=== PATIENT | female | born 1985 | race Caucasian/White ===

== ENCOUNTER → 2023-01-09 13:45 | Outpatient (CLI) | payer OTHER, SELFPAY | PROVIDERS: Visit Provider Physician Assistant | DX: B37.9 Candidiasis, unspecified (principal); N89.8 Other specified noninflammatory disorders of vagina | CPT/HCPCS: 87086; 87210 ==

== ENCOUNTER 2023-01-10 11:11 | Emergency (ER) | payer OTHER, SELFPAY ==
[2023-01-10 11:32] VITALS: BP 130/95; PULSE 100; RESP 18; TEMP 36.6; O2SAT 100; BMI 23.9
--- NOTE | 2023-01-10 12:10 | DI.CT.S_ITS ---
PROCEDURE: CT ABDOMEN PELVIS W CON INDICATIONS: severe rectal pain, ulcerative colitis TECHNIQUE: After the administration of intravenous contrast, axial sections acquired from the lung bases to the pubic symphysis. Coronal and sagittal reformats were performed. For radiation dose reduction, the following was used: automated exposure control, adjustment of mA and/or kV according to patient size. COMPARISON: None. FINDINGS: Image quality: Excellent. Lung bases: Unremarkable. Heart: No significant findings. ABDOMEN: Liver: Scattered subcentimeter hypoattenuating lesions, too small to characterize by CT but probably small cysts. Gallbladder: Unremarkable. Biliary ducts: Unremarkable. Pancreas: Unremarkable. Spleen: Unremarkable. Adrenal Glands: Unremarkable. Kidneys and Ureters: Punctate, nonobstructing right-sided stones. No hydronephrosis. Stomach and Bowel: Slight asymmetric wall enhancement of the right lower rectum at the anorectal junction (series 2, image 81). Peritoneum: No abnormal intraperitoneal fluid. No free air. Ventral Wall: No hernias. Abdominal Nodes: No retroperitoneal or mesenteric adenopathy by size criteria. Vessels: Aorta and inferior vena cava are normal in size. PELVIS: Pelvic Organs: Unremarkable. Bladder: Unremarkable. Pelvic Nodes: No enlarged lymph nodes. Miscellaneous: No hernias are seen. Bones: Unremarkable. IMPRESSION: Slight asymmetric wall enhancement of the right lower rectal wall at the anorectal junction. Given symptoms, findings probably represent proctitis. Small burden of punctate, nonobstructing right-sided stones. Dictated by: Reid Arreola M.D. on 01/10/2023 at 13:31 Approved by: Reid Arreola M.D. on 01/10/2023 at 13:33
--- NOTE | 2023-01-10 12:29 | ED_ITS ---
HPI - Skin/Abscess/Foreign Bdy <Sadie Bermudez PA-C - Last Filed: 01/10/23 19:41> General Chief complaint: Skin/Abscess/Foreign Body Stated complaint: cyst/drainage by anus and painful Time Seen by Provider: 01/10/23 11:15 History of Present Illness HPI narrative: This is a 37-year-old woman with a history of ulcerative colitis, hemorrhoids, multiple cysts who presents with concern for severe rectal/anus pain and mass. Patient states that an area right near her anus has been extremely painful and tender for the past 3 days, she states it was painful prior to this for about the past week but became severe on Sunday 3 days ago. She states the pain spec ifically comes on with high-intensity when she has a bowel movement but then persists for the remainder of the day and is almost as painful for the remainder of the day. She states it has made it difficult to move walk or perform her work. She states that the pain does resolve usually by nighttime and by morning when she wakes up it is not present. Her last bowel movement was this morning at 9:15 a.m. and she is had severe pain since that time. She is concerned that she may have an abscess versus cyst. She denies abdominal pain except in the baseline mild abdominal discomfort associated with her UC. She states she has not had fevers and has been eating and drinking normally. Her stools have not had mucus or blood in them. Her last stools over the last few days have been brownish in color and soft. Related Data Home Medications Medication Instructions Recorded Confirmed mesalamine 1.2 gram tablet,delayed 2.4 g PO DAILY 01/09/23 01/09/23 release Previous Rx's Medication Instructions Recorded clotrimazole 1 % topical cream 1 applic topical BID 2 weeks #15 01/09/23 grams fluconazole 150 mg tablet 150 mg PO DAILY #1 tab 01/09/23 sulfamethoxazole 800 1 tab PO Q12H #14 tabs 01/09/23 mg-trimethoprim 160 mg tablet (Bactrim DS) docusate sodium 100 mg tablet 100 mg PO DAILY 10 days #10 tabs 01/10/23 meloxicam 7.5 mg tablet 7.5 mg PO DAILY 10 days #10 tabs 01/10/23 Allergies Allergy/AdvReac Type Severity Reaction Status Date / Time latex Allergy Intermediate rashes Verified 01/10/23 11:34 Review of Systems <Sadiedeepika Bermudez PA-C - Last Filed: 01/10/23 19:41> Review of Systems Narrative: See HPI Patient History <Sadie KIKA Bermudez - Last Filed: 01/10/23 19:41> tobacco type: vaping alcohol intake frequency: a few times a month Substance Use Type: does not use Exam <Sadiedeepika Bermudez PA-C - Last Filed: 01/10/23 19:41> Narrative Exam Narrative: POWER Huerta present as corporate associate for rectal exam GENERAL: [37] year old patient appears stated age. Well-developed patient, in moderate distress, pt is very uncomfortable appearing, lying in position of comfort on Right side. HEAD: Atraumatic. Normocephalic. EYES: Pupils equal round and reactive. Extraocular motions intact. No scleral icterus. No injection or drainage. ENT: Nose without bleeding, purulent drainage. Airway patent. NECK: Trachea midline. Non tender CARDIOVASCULAR: Regular rate and rhythm without murmurs, gallops, or rubs. RESPIRATORY: Clear to auscultation. Breath sounds equal bilaterally. No wheezes, rales, or rhonchi. GASTROINTESTINAL: Abdomen soft, non-tender, nondistended. RECTAL: ( exam is not performed) visual inspection of the area of the anus shows multiple flesh-colored chronic hemorrhoids versus genital warts. There is a raised lesion that is also flesh-colored located between the 7 and 9 o'clock position just outside the anus. This is extremely tender to palpation, without fluctuance or drainage noted. Missed lesion is approximately 1-1.5 cm diameter, however there is tenderness surrounding the region with light palpation. Patient is exquisitely tender with palpation of this raised area. A limited rectal internal exam is performed to evaluate this area, and a small tender mass is noted internally between 7-9 o'clock consistent with the external lesion. Patient is exquisitely tender with this exam. EXTREMITIES: No edema or joint tenderness. BACK: Nontender without deformity or crepitance. No flank tenderness. NEURO: AOx3. SKIN: No rash or erythema of visible areas Initial Vital Signs Initial Vital Signs: Vital Signs Temperature 98 F 01/10/23 11:32 Pulse Rate 100 H 01/10/23 11:32 Respiratory Rate 18 01/10/23 11:32 Blood Pressure 130/95 H 01/10/23 11:32 Pulse Oximetry 100 01/10/23 11:32 Oxygen Delivery Method Room Air 01/10/23 11:32 <Karolina Jara, - Last Filed: 01/15/23 08:17> Initial Vital Signs Initial Vital Signs: Vital Signs Temperature 98 F 01/10/23 11:32 Pulse Rate 100 H 01/10/23 11:32 Respiratory Rate 18 01/10/23 11:32 Blood Pressure 130/95 H 01/10/23 11:32 Pulse Oximetry 100 01/10/23 11:32 Oxygen Delivery Method Room Air 01/10/23 11:32 Course <Sadei Bermudez PA-C - Last Filed: 01/10/23 19:41> Course Course Narrative: Did discuss this patient with Dr. Jara regarding plan for labs and imaging. Given patient's history of ulcerative colitis and inconclusive rectal/external exam CT scan is pursued for further evaluation of abscess versus cyst. To further evaluate for internal involvement. After return of imaging results discussed results with the patient, noting that there does not appear to be a drainable abscess but there is inflammation present consistent with proctitis, she shared her GI doctor's name and will attempt to contact them for consult regarding potential medication options. Patient also stated that she has been prescribed Humira but has not been able to get this prescription filled yet. 1524 sports marketing coordinator did call and talk to someone at [facility] who advised they would get their on-call GI provider at [facility] that works with Dr. Rosario (patient's GI provider) to call back, however this has not happened. sports marketing coordinator has called multiple times repeatedly to try to get a hold of someone. Will discuss patient with our general surgeon on-call here Dr. Trevino. 1610 Did discuss this patient with on-call surgeon Dr. Trevino, he does not have any specific recommendations other than checking up-to-date prefers that patient talked to her GI provider regarding medication options. States patient does not require surgical management at this time. Did discuss this patient again with clinic physician Dr. Gold feels it is reasonable to place her on a short course of steroids, Colace as stool softener and meloxicam for pain. Have her follow up closely with her GI provider. Based on labs today as well as patient's CT imaging we are not seeing evidence of need for admission. 1624 Orders Ordered: Discontinued Medications Acetaminophen (Acetaminophen 325 Mg Tablet) 650 mg PO NOW ONE Stop: 01/10/23 12:00 Last Admin: 01/10/23 13:05 Dose: 650 mg Documented By: JESSIE Ketorolac Tromethamine (Ketorolac 30 Mg/Ml Vial) 15 mg IV NOW ONE Stop: 01/10/23 15:51 Last Admin: 01/10/23 16:04 Dose: 15 mg Documented By: JESSIE Vital Signs Vital signs: Vital Signs - 8 hr 01/10/23 16:12 01/10/23 16:12 01/10/23 16:30 Pulse Rate Blood Pressure 107/60 108/73 Pulse Oximetry 96 01/10/23 16:30 Pulse Rate 80 Blood Pressure Pulse Oximetry 98 <Karolina Jara DO - Last Filed: 01/15/23 08:17> Orders Ordered: Discontinued Medications Acetaminophen (Acetaminophen 325 Mg Tablet) 650 mg PO NOW ONE Stop: 01/10/23 12:00 Last Admin: 01/10/23 13:05 Dose: 650 mg Documented By: JESSIE Ketorolac Tromethamine (Ketorolac 30 Mg/Ml Vial) 15 mg IV NOW ONE Stop: 01/10/23 15:51 Last Admin: 01/10/23 16:04 Dose: 15 mg Documented By: JESSIE Vital Signs Vital signs: Vital Signs - 8 hr 01/10/23 16:12 01/10/23 16:12 01/10/23 16:30 Pulse Rate Blood Pressure 107/60 108/73 Pulse Oximetry 96 01/10/23 16:30 Pulse Rate 80 Blood Pressure Pulse Oximetry 98 MDM - Skin/Abscess/Foreign Bdy <Sadie Bermudez PA-C - Last Filed: 01/10/23 19:41> Differential Diagnosis Differential diagnosis: Likely abscess of skin or subcutaneous tissue, cellulitis and other (Ulcerative colitis, proctitis, hemorrhoid) Medical Records Attestation: I reviewed the patient's medical records. Lab Data Attestation: I reviewed the patient's lab results. 01/10/23 12:51 01/10/23 12:51 Labs: Lab Results 01/10/23 01/10/23 01/10/23 Range/Units 12:51 12:51 12:51 WBC 11.3 H (4.5-11.0) X10^3/uL RBC 4.34 (4.0-5.2) X10^6/uL Hgb 11.6 L (12.0-16.0) g/dL Hct 35.6 L (36-46) % MCV 82.0 (80-100) fL MCH 26.7 (26-34) PG MCHC 32.5 (30-36) % RDW 14.5 (11.6-14.8) % Plt Count 348 (150-400) X10^3/uL Neut % (Auto) 80.8 H (50-75) % Lymph % (Auto) 11.2 L (25-40) % [place] % (Auto) 6.3 (3-14) % Eos % (Auto) 1.1 L (2-4) % Baso % (Auto) 0.6 (0-2) % Neut # (Auto) 9200 H (1342-7510) /uL Lymph # (Auto) 1300 (6867-5398) /uL [place] # (Auto) 700 (0-900) /uL Eos # (Auto) 100 (0-450) /uL Baso # (Auto) 100 (0-100) /uL ESR 36 H (0-20) MM/HR Sodium 140 (137-145) mmol/L Potassium 4.1 (3.4-5.1) mmol/L Chloride 104 (98-107) mmol/L Carbon Dioxide 31 (22-32) mmol/L BUN 8 (7-17) mg/dL Creatinine 0.67 (0.52-1.04) mg/dL Estimated GFR > 60 (>60) mL/min BUN/Creatinine Ratio 11.9 (6-22) Glucose 112 H (70-100) mg/dL Calcium 9.1 (8.4-10.2) mg/dL Total Bilirubin 0.4 (0.2-1.3) mg/dL AST 24 (14-36) IU/L ALT 14 (<35) IU/L Alkaline Phosphatase 97 (38-126) U/L C-Reactive Protein (<1.0) mg/dL Total Protein 8.2 (6.3-8.2) g/dL Albumin 4.2 (3.5-5.0) g/dL Globulin 4.0 (1.7-4.1) g/dL Albumin/Globulin Ratio 1.1 (1.0-2.8) HCG, Quant mIU/mL Serum , Qual (Negative) Urine RBC (0-5/HPF) Urine WBC (0-5/HPF) Ur Squamous Epith Cells (0-5/HPF) Urine Bacteria (None) Ur Culture Indicated? 01/10/23 01/10/23 01/10/23 Range/Units 12:51 12:51 12:51 WBC (4.5-11.0) X10^3/uL RBC (4.0-5.2) X10^6/uL Hgb (12.0-16.0) g/dL Hct (36-46) % MCV (80-100) fL MCH (26-34) PG MCHC (30-36) % RDW (11.6-14.8) % Plt Count (150-400) X10^3/uL Neut % (Auto) (50-75) % Lymph % (Auto) (25-40) % [place] % (Auto) (3-14) % Eos % (Auto) (2-4) % Baso % (Auto) (0-2) % Neut # (Auto) (2605-7941) /uL Lymph # (Auto) (3282-1863) /uL [place] # (Auto) (0-900) /uL Eos # (Auto) (0-450) /uL Baso # (Auto) (0-100) /uL ESR (0-20) MM/HR Sodium (137-145) mmol/L Potassium (3.4-5.1) mmol/L Chloride (98-107) mmol/L Carbon Dioxide (22-32) mmol/L BUN (7-17) mg/dL Creatinine (0.52-1.04) mg/dL Estimated GFR (>60) mL/min BUN/Creatinine Ratio (6-22) Glucose (70-100) mg/dL Calcium (8.4-10.2) mg/dL Total Bilirubin (0.2-1.3) mg/dL AST (14-36) IU/L ALT (<35) IU/L Alkaline Phosphatase (38-126) U/L C-Reactive Protein 1.5 H (<1.0) mg/dL Total Protein (6.3-8.2) g/dL Albumin (3.5-5.0) g/dL Globulin (1.7-4.1) g/dL Albumin/Globulin Ratio (1.0-2.8) HCG, Quant < 2.4 mIU/mL Serum , Qual Negative (Negative) Urine RBC (0-5/HPF) Urine WBC (0-5/HPF) Ur Squamous Epith Cells (0-5/HPF) Urine Bacteria (None) Ur Culture Indicated? 01/10/23 Range/Units 16:25 WBC (4.5-11.0) X10^3/uL RBC (4.0-5.2) X10^6/uL Hgb (12.0-16.0) g/dL Hct (36-46) % MCV (80-100) fL MCH (26-34) PG MCHC (30-36) % RDW (11.6-14.8) % Plt Count (150-400) X10^3/uL Neut % (Auto) (50-75) % Lymph % (Auto) (25-40) % [place] % (Auto) (3-14) % Eos % (Auto) (2-4) % Baso % (Auto) (0-2) % Neut # (Auto) (9074-9353) /uL Lymph # (Auto) (2979-1228) /uL [place] # (Auto) (0-900) /uL Eos # (Auto) (0-450) /uL Baso # (Auto) (0-100) /uL ESR (0-20) MM/HR Sodium (137-145) mmol/L Potassium (3.4-5.1) mmol/L Chloride (98-107) mmol/L Carbon Dioxide (22-32) mmol/L BUN (7-17) mg/dL Creatinine (0.52-1.04) mg/dL Estimated GFR (>60) mL/min BUN/Creatinine Ratio (6-22) Glucose (70-100) mg/dL Calcium (8.4-10.2) mg/dL Total Bilirubin (0.2-1.3) mg/dL AST (14-36) IU/L ALT (<35) IU/L Alkaline Phosphatase (38-126) U/L C-Reactive Protein (<1.0) mg/dL Total Protein (6.3-8.2) g/dL Albumin (3.5-5.0) g/dL Globulin (1.7-4.1) g/dL Albumin/Globulin Ratio (1.0-2.8) HCG, Quant mIU/mL Serum , Qual (Negative) Urine RBC 0-1/hpf (0-5/HPF) Urine WBC 5-10/hpf H (0-5/HPF) Ur Squamous Epith Cells 5-10 /hpf H (0-5/HPF) Urine Bacteria Many (>30) H (None) Ur Culture Indicated? Specimen cultured Point of Care Testing Test Results Negative Urine Dip Bedside Urine Glucose Negative Bedside Urine Bilirubin - Negative Bedside Urine Ketone - Negative Urine Specific [place] 1.005 Bedside Urine Occult Blood - Negative Bedside Urine pH 8.5 Bedside Urine Protein - Negative Bedside Urine Urobilinogen - Negative Bedside Urine Nitrite - Negative Bedside Urine Leukocytes +/- [address] scan - abdomen/pelvis: My Impression: Agree with Radiology interpretation Radiologist's Impression: [place] [address] CT Scan Report Signed Patient: Mimi Sanchez MR#: [id number] : 1985 Acct:[id number] Age/Sex: 37 / F Date of Service: 01/10/23 Loc: ED Accession Number: [id number] ?? Procedure: CT abdomen pelvis w con Ordering Provider: Sadie Bermudez P.A-C PROCEDURE:? CT ABDOMEN PELVIS W CON ? INDICATIONS:? severe rectal pain, ulcerative colitis ? TECHNIQUE:? After the administration of intravenous contrast, axial sections acquired from the lung bases to the pubic symphysis.? Coronal and sagittal reformats were performed.? For radiation dose reduction, the following was used:? automated exposure control, adjustment of mA and/or kV according to patient size.? ? COMPARISON:? None. ? FINDINGS:? Image quality:? Excellent.? ? Lung bases:? Unremarkable. Heart:? No significant findings. ? ABDOMEN: Liver: Scattered subcentimeter hypoattenuating lesions, too small to characterize by CT but probably small cysts. Gallbladder:? Unremarkable.? ? Biliary ducts:? Unremarkable.? ? Pancreas:? Unremarkable.? ? Spleen:? Unremarkable.? ? Adrenal Glands:? Unremarkable.? ? Kidneys and Ureters:? Punctate, nonobstructing right-sided stones.? No hydronephrosis. ? Stomach and Bowel:? Slight asymmetric wall enhancement of the right lower rectum at the anorectal junction (series 2, image 81). Peritoneum:? No abnormal intraperitoneal fluid.? No free air.? ? Ventral Wall: ? No hernias.? Abdominal Nodes:? No retroperitoneal or mesenteric adenopathy by size criteria.? Vessels:? Aorta and inferior vena cava are normal in size.? ? PELVIS: Pelvic Organs:? Unremarkable.? ? Bladder:? Unremarkable.? ? Pelvic Nodes: No enlarged lymph nodes.? Miscellaneous: No hernias are seen. ? ? ? Bones:? Unremarkable.? IMPRESSION:? Slight asymmetric wall enhancement of the right lower rectal wall at the anorectal junction.? Given symptoms, findings probably represent proctitis. ? Small burden of punctate, nonobstructing right-sided stones.? ? ? Dictated by: Reid Arreola M.D. on 01/10/2023 at 13:31 ? ? Approved by: Reid Arreola M.D. on 01/10/2023 at 13:33?? Treatment and disposition Shared decision making:: Shared decision-making was used in determining the patient's evaluation today in the emergency department and plan for outpatient follow-up MDM Narrative Medical decision making narrative: This is a 37-year-old woman with a history of ulcerative colitis who presents to the ER with concern for severe rectal pain much worse with bowel movements since Sunday. Patient is very uncomfortable appearing initially, she acknowledges she has not taken anything for pain including [id number] medications, is on mesalamine chronically, has a GI provider in [place] that she is had 1 visit with through telemedicine, gets her most of her care in [place] where she is from. 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 Labs today returned showing a elevated ESR and CRP, ESR 36 CRP 1.5, she has no leukocytosis other labs are looking okay today, she is waiting to hear back regarding prescription for Humira. After discussion with on-call surgeon and attending provider, as well as a CT scan which shows findings concerning for mild proctitis, discussed options with the patient and she is agreeable to trying prednisone, Colace and meloxicam for her symptoms, we will follow up closely with her GI provider, will return if she has new or worsening symptoms, and will continue working on getting her Humira prescription filled. Return precautions provided, follow-up plan discussed, all questions answered <Karolina Jara DO - Last Filed: 01/15/23 08:17> Lab Data Labs: Lab Results 01/10/23 01/10/23 01/10/23 Range/Units 12:51 12:51 12:51 WBC 11.3 H (4.5-11.0) X10^3/uL RBC 4.34 (4.0-5.2) X10^6/uL Hgb 11.6 L (12.0-16.0) g/dL Hct 35.6 L (36-46) % MCV 82.0 (80-100) fL MCH 26.7 (26-34) PG MCHC 32.5 (30-36) % RDW 14.5 (11.6-14.8) % Plt Count 348 (150-400) X10^3/uL Neut % (Auto) 80.8 H (50-75) % Lymph % (Auto) 11.2 L (25-40) % [place] % (Auto) 6.3 (3-14) % Eos % (Auto) 1.1 L (2-4) % Baso % (Auto) 0.6 (0-2) % Neut # (Auto) 9200 H (1600-2705) /uL Lymph # (Auto) 1300 (4147-7752) /uL [place] # (Auto) 700 (0-900) /uL Eos # (Auto) 100 (0-450) /uL Baso # (Auto) 100 (0-100) /uL ESR 36 H (0-20) MM/HR Sodium 140 (137-145) mmol/L Potassium 4.1 (3.4-5.1) mmol/L Chloride 104 (98-107) mmol/L Carbon Dioxide 31 (22-32) mmol/L BUN 8 (7-17) mg/dL Creatinine 0.67 (0.52-1.04) mg/dL Estimated GFR > 60 (>60) mL/min BUN/Creatinine Ratio 11.9 (6-22) Glucose 112 H (70-100) mg/dL Calcium 9.1 (8.4-10.2) mg/dL Total Bilirubin 0.4 (0.2-1.3) mg/dL AST 24 (14-36) IU/L ALT 14 (<35) IU/L Alkaline Phosphatase 97 (38-126) U/L C-Reactive Protein (<1.0) mg/dL Total Protein 8.2 (6.3-8.2) g/dL Albumin 4.2 (3.5-5.0) g/dL Globulin 4.0 (1.7-4.1) g/dL Albumin/Globulin Ratio 1.1 (1.0-2.8) HCG, Quant mIU/mL Serum , Qual (Negative) Urine RBC (0-5/HPF) Urine WBC (0-5/HPF) Ur Squamous Epith Cells (0-5/HPF) Urine Bacteria (None) Ur Culture Indicated? 01/10/23 01/10/23 01/10/23 Range/Units 12:51 12:51 12:51 WBC (4.5-11.0) X10^3/uL RBC (4.0-5.2) X10^6/uL Hgb (12.0-16.0) g/dL Hct (36-46) % MCV (80-100) fL MCH (26-34) PG MCHC (30-36) % RDW (11.6-14.8) % Plt Count (150-400) X10^3/uL Neut % (Auto) (50-75) % Lymph % (Auto) (25-40) % [place] % (Auto) (3-14) % Eos % (Auto) (2-4) % Baso % (Auto) (0-2) % Neut # (Auto) (0568-8771) /uL Lymph # (Auto) (3475-0503) /uL [place] # (Auto) (0-900) /uL Eos # (Auto) (0-450) /uL Baso # (Auto) (0-100) /uL ESR (0-20) MM/HR Sodium (137-145) mmol/L Potassium (3.4-5.1) mmol/L Chloride (98-107) mmol/L Carbon Dioxide (22-32) mmol/L BUN (7-17) mg/dL Creatinine (0.52-1.04) mg/dL Estimated GFR (>60) mL/min BUN/Creatinine Ratio (6-22) Glucose (70-100) mg/dL Calcium (8.4-10.2) mg/dL Total Bilirubin (0.2-1.3) mg/dL AST (14-36) IU/L ALT (<35) IU/L Alkaline Phosphatase (38-126) U/L C-Reactive Protein 1.5 H (<1.0) mg/dL Total Protein (6.3-8.2) g/dL Albumin (3.5-5.0) g/dL Globulin (1.7-4.1) g/dL Albumin/Globulin Ratio (1.0-2.8) HCG, Quant < 2.4 mIU/mL Serum , Qual Negative (Negative) Urine RBC (0-5/HPF) Urine WBC (0-5/HPF) Ur Squamous Epith Cells (0-5/HPF) Urine Bacteria (None) Ur Culture Indicated? 01/10/23 Range/Units 16:25 WBC (4.5-11.0) X10^3/uL RBC (4.0-5.2) X10^6/uL Hgb (12.0-16.0) g/dL Hct (36-46) % MCV (80-100) fL MCH (26-34) PG MCHC (30-36) % RDW (11.6-14.8) % Plt Count (150-400) X10^3/uL Neut % (Auto) (50-75) % Lymph % (Auto) (25-40) % [place] % (Auto) (3-14) % Eos % (Auto) (2-4) % Baso % (Auto) (0-2) % Neut # (Auto) (7007-4968) /uL Lymph # (Auto) (7200-5782) /uL [place] # (Auto) (0-900) /uL Eos # (Auto) (0-450) /uL Baso # (Auto) (0-100) /uL ESR (0-20) MM/HR Sodium (137-145) mmol/L Potassium (3.4-5.1) mmol/L Chloride (98-107) mmol/L Carbon Dioxide (22-32) mmol/L BUN (7-17) mg/dL Creatinine (0.52-1.04) mg/dL Estimated GFR (>60) mL/min BUN/Creatinine Ratio (6-22) Glucose (70-100) mg/dL Calcium (8.4-10.2) mg/dL Total Bilirubin (0.2-1.3) mg/dL AST (14-36) IU/L ALT (<35) IU/L Alkaline Phosphatase (38-126) U/L C-Reactive Protein (<1.0) mg/dL Total Protein (6.3-8.2) g/dL Albumin (3.5-5.0) g/dL Globulin (1.7-4.1) g/dL Albumin/Globulin Ratio (1.0-2.8) HCG, Quant mIU/mL Serum , Qual (Negative) Urine RBC 0-1/hpf (0-5/HPF) Urine WBC 5-10/hpf H (0-5/HPF) Ur Squamous Epith Cells 5-10 /hpf H (0-5/HPF) Urine Bacteria Many (>30) H (None) Ur Culture Indicated? Specimen cultured Point of Care Testing Test Results Negative Urine Dip Bedside Urine Glucose Negative Bedside Urine Bilirubin - Negative Bedside Urine Ketone - Negative Urine Specific [place] 1.005 Bedside Urine Occult Blood - Negative Bedside Urine pH 8.5 Bedside Urine Protein - Negative Bedside Urine Urobilinogen - Negative Bedside Urine Nitrite - Negative Bedside Urine Leukocytes +/- 15 Esterase Discharge Plan Departure Patient Disposition: Home Clinical Impression: Acute proctitis, Anal or rectal pain Activity Restrictions/Additional Instructions: *You have been diagnosed with proctitis/ulcerative colitis flare *What to do: *Please continue to take your regular medications as directed. [3 ] New medication prescriptions sent to your pharmacy: [Meloxicam, prednisone, Colace] [ ] New medication written as a paper prescription [ ] No new medications given *Please follow up with your primary care provider in 2-3 days, call for an appointment. Let them know you were seen in the Emergency Department and that we ask that you be seen in follow up. We will electronically transmit a record of today's note if your PCP is in our system. We did do labs today showing that he has some inflammation going on as well as a CT scan which showed that you have inflammation of your anorectal margin consistent with proctitis. There is no obvious abscess present, after discussion with attending physician and on-call surgeon we are placing you on steroid medication, Colace for stool softener, and meloxicam for pain. I encourage you to take Tylenol as well for pain. It is super important that you follow up closely with her GI provider, typically ulcerative colitis is best managed by Gastroenterology or a team/providers that is specialize in this so I strongly encourage you to follow-up closely with your GI provider regarding the course of therapy we have placed you on today, and your symptoms to see if they have any other recommendations. I am sorry this is going on for you and I hope that you have improvement soon, of course if you are not improving or if you have worsening symptoms make sure that you get re- evaluated. *If you do not have a primary care provider please contact the [facility] Resource line at [phone]. They will ask some questions about your medical history and help get you set up with a doctor in the community. *Return to Emergency Department if you should have any new, worsening or concerning symptoms, such as [fever greater than 101 F, shaking chills, worsening pain, persistent vomiting or other bothersome symptoms] Prescriptions: New meloxicam 7.5 mg tablet 7.5 mg PO DAILY 10 Days Qty: 10 0RF docusate sodium 100 mg tablet 100 mg PO DAILY 10 Days Qty: 10 0RF No Action mesalamine 1.2 gram tablet,delayed release (DR/EC) 2.4 g PO DAILY clotrimazole 1 % cream 1 applic topical BID 14 Days Qty: 15 0RF fluconazole 150 mg tablet 150 mg PO DAILY Qty: 1 0RF sulfamethoxazole-trimethoprim [Bactrim DS] 800-160 mg tablet 1 tab PO Q12H Qty: 14 0RF Referrals: Miscellaneous,Doctor, MD [Primary Care Provider] - Stand Alone Forms: Patient Portal/API <Karolina Jara DO - Last Filed: 01/15/23 08:17> Cosign ED Attending Cosignature Attestation: I was immediately available in the department for consultation. Documentation has been reviewed.
[2023-01-10 13:00] LABS: Add Manual Diff / Slide Review NO; Basophils Absolute Auto 100 /uL (0-100); Basophils Percent Auto 0.6 % (0-2); Eosinophils Absolute Auto 100 /uL (0-450); Eosinophils Percent Auto 1.1 % (2-4); Hematocrit 35.6 % (36-46); Hemoglobin 11.6 g/dL (12.0-16.0); Lymphocytes Absolute Auto 1300 /uL (1100-4500); Lymphocytes Percent Auto 11.2 % (25-40); Mean Corpuscular HGB Conc 32.5 % (30-36); Mean Corpuscular Hemoglobin 26.7 PG (26-34); Monocytes Absolute Auto 700 /uL (0-900); Monocytes Percent Auto 6.3 % (3-14); Neutrophils Absolute Auto 9200 /uL (1500-7000); Neutrophils Percent Auto 80.8 % (50-75); Platelet Count 348 X10^3/uL (150-400); Red Blood Cell Count 4.34 X10^6/uL (4.0-5.2); Red Cell Distribution Width 14.5 % (11.6-14.8); White Blood Cell Count 11.3 X10^3/uL (4.5-11.0)
[2023-01-10] MEDS: ACETAMINOPHEN 325 MG TABLET 650 MG PO (13:05)
[2023-01-10 13:20] LABS: Alanine Aminotransferase 14 IU/L (<35); Albumin 4.2 g/dL (3.5-5.0); Albumin Globulin Ratio 1.1 (1.0-2.8); Alkaline Phosphatase 97 U/L (38-126); Aspartate Aminotransferase 24 IU/L (14-36); BUN Creatinine Ratio 11.9 (6-22); Bilirubin Total 0.4 mg/dL (0.2-1.3); Blood Urea Nitrogen 8 mg/dL (7-17); Calcium 9.1 mg/dL (8.4-10.2); Carbon Dioxide 31 mmol/L (22-32); Chloride 104 mmol/L (98-107); Estimated Glomerular Filt Rate > 60 mL/min (>60); Glucose 112 mg/dL (70-100); HEMOLYSIS 29 (0-50); Potassium 4.1 mmol/L (3.4-5.1); Sodium 140 mmol/L (137-145); Total Protein 8.2 g/dL (6.3-8.2)
[2023-01-10 13:24] LABS: C-Reactive Protein Quant 1.5 mg/dL (<1.0)
[2023-01-10 13:42] LABS: Erythrocyte Sedimentation Rate 36 MM/HR (0-20)
[2023-01-10 13:44] LABS: Pregnancy Test Serum,Qual Negative (Negative)
[2023-01-10 14:27] LABS: HCG Quantitative /Beta subunit < 2.4 mIU/mL
[2023-01-10] MEDS: KETOROLAC 30 MG/ML VIAL 15 MG IV (16:04)
[2023-01-10 16:12] VITALS: BP 107/60; O2SAT 96
[2023-01-10 16:30] VITALS: BP 108/73; PULSE 80; O2SAT 98
[2023-01-10 17:09] LABS: RBC Urine 0-1/HPF (0-5/HPF); WBC Urine 5-10/HPF (0-5/HPF)
[2023-01-10 17:10] LABS: Bacteria Urine Many (>30); Culture Indicated Urine Specimen Cultured; Squamous Epithelial Cell Urine 5-10 /HPF (0-5/HPF)
== END 2023-01-10 17:10 | disposition home or self-care (01) ==
PROVIDERS: Emergency Provider Student in an Organized Health Care Education/Training Program
DX: K62.89 Other specified diseases of anus and rectum (principal)
CPT/HCPCS: 36415; 74177; 80053; 81003; 81015; 81025; 84702; 84703; 85025; 85651; 86140; 87086; 96374; 99284; J1885; Q9967

== ENCOUNTER 2023-05-06 18:51 | Emergency (ER) | payer OTHER, SELFPAY ==
[2023-05-06 18:56] VITALS: BP 125/86; PULSE 103; RESP 16; TEMP 36.9; O2SAT 99; BMI 23.1
--- NOTE | 2023-05-06 20:04 | ED_ITS ---
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 She is not complaining of any neurovascular abnormalities behind this. She does have full range of her wrist, there is no lymphangitic streaking, she is not reporting any fevers. She is concerned that working in sterile processing she may have been exposed to unusual bacteria and wants to make sure that this does not get worse. She is not had any fevers, cough, nausea, abdominal pain, diarrhea, palpitations or headaches. Related Data Home Medications Medication Instructions Recorded Confirmed mesalamine 1.2 gram tablet,delayed 2.4 g PO DAILY 01/09/23 04/17/23 release Previous Rx's Medication Instructions Recorded fluconazole 150 mg tablet 150 mg PO DAILY #1 tab 01/09/23 sulfamethoxazole 800 1 tab PO Q12H #14 tabs 01/09/23 mg-trimethoprim 160 mg tablet (Bactrim DS) sulfamethoxazole 800 1 tab PO BID #14 tabs 05/06/23 mg-trimethoprim 160 mg tablet (Bactrim DS) Allergies Allergy/AdvReac Type Severity Reaction Status Date / Time latex Allergy Intermediate rashes Verified 04/17/23 12:32 Review of Systems Review of Systems Narrative: Pertinent positive and negative findings as per HPI Patient History Social History Smoking Status: Current every day smoker Smoking Status: Current every day smoker tobacco type: vaping alcohol intake frequency: a few times a month Substance Use Type: does not use Exam Initial Vital Signs Initial Vital Signs: Vital Signs Temperature 98.5 F 05/06/23 18:56 Pulse Rate 103 H 05/06/23 18:56 Respiratory Rate 16 05/06/23 18:56 Blood Pressure 125/86 05/06/23 18:56 Pulse Oximetry 99 05/06/23 18:56 Oxygen Delivery Method Room Air 05/06/23 18:56 General: Alert appropriate in no acute distress Respiratory: Able to speak in full sentences, no obvious respiratory distress Skin: No obvious rashes, warm and dry Neurologic: Grossly intact no obvious asymmetries or abnormalities Psych: appropriate insight and affect, cooperative Extremity: On the radial surface of her left forearm she has a 3 cm in diameter area of erythema with central fluctuance. It is I & D'd and cultures obtained. There was a small amount of purulent material returned. Procedures Abscess I/D Left wrist: Time of procedure: 20:24 Site: upper extremity Side (if applicable): left Local Anesthetic: lidocaine 1% Amount of anesthesia used (mL): 2 Technique: incised with #11 blade Amount of fluid expressed (mL): 2 Course Vital Signs Vital signs: Vital Signs - 8 hr 05/06/23 18:56 Temperature 98.5 F Pulse Rate 103 H Respiratory Rate 16 Blood Pressure 125/86 Pulse Oximetry 99 Oxygen Delivery Method Room Air MDM - Skin/Abscess/Foreign Bdy MDM Narrative Medical decision making narrative: CC: Abscess and cellulitis radial side left distal wrist Complicating co-morbidities: She is on Humira with mild immunocompromise Data collected from: patient, Social determinants of health that may influence the patients condition: 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 She does have increased risk due to exposures at work as well as mild immune compromised being on Humira. We will start her on Septra b.i.d. for 7 days. Culture is obtained. Encouraged her to return if symptoms do not improve Discharge Plan Departure Patient Disposition: Home Clinical Impression: Abscess of skin or subcutaneous tissue Instructions: DI for Skin Abscess Activity Restrictions/Additional Instructions: Thank you for coming in this evening I was able to get a bit more drainage from your wound. I am going to start you on Septra, an antibiotic. You need to complete all 7 days. 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 Change the dressing any time it is dirty or wet and at least twice a day. I hope you heal quickly Prescriptions: New sulfamethoxazole-trimethoprim [Bactrim DS] 800-160 mg tablet 1 tab PO BID Qty: 14 0RF No Action mesalamine 1.2 gram tablet,delayed release (DR/EC) 2.4 g PO DAILY fluconazole 150 mg tablet 150 mg PO DAILY Qty: 1 0RF sulfamethoxazole-trimethoprim [Bactrim DS] 800-160 mg tablet 1 tab PO Q12H Qty: 14 0RF Referrals: Miscellaneous,Doctor, MD [Primary Care Provider] - Stand Alone Forms: Patient Portal/API
[2023-05-06] MEDS: TRIMETH/SULFA 160/800 (DS) TABLET 1 TAB PO (20:24)
[2023-05-06] MEDS: BACITRACIN OINT 0.9 GM PCKT 1 APPLIC TOP (20:25)
[2023-05-06 20:26] VITALS: BP 128/77; PULSE 87; RESP 16; O2SAT 100
== END 2023-05-06 20:33 | disposition home or self-care (01) ==
PROVIDERS: Emergency Provider Emergency Medicine
DX: L02.414 Cutaneous abscess of left upper limb (principal)
CPT/HCPCS: 10060; 87070; 87075; 87077; 87147; 87186; 87205; 99283